=== PATIENT | male | born 2000 | race Asian ===

== ENCOUNTER 2023-12-24 16:47 | Inpatient (IN) | payer OTHER ==
[~2023-12-24] VITALS: Ht 175.3 cm; Wt 80.7 kg
[2023-12-24 16:56] VITALS: BP_SYST 130; PULSE 107; RESP 16; TEMP 96.9; O2SAT 99
[2023-12-24 18:56] LABS: HEMATOCRIT 42.4 % (36-54); HEMOGLOBIN 13.3 g/dL (14.0-18.0); MEAN CORPUSCULAR HEMOGLOBIN 21 pg (27-31); MEAN CORPUSCULAR HGB CONC 31 % (32-36); MEAN CORPUSCULAR VOLUME 67 fL (79.0-98.0); PLATELET COUNT (AUTO) 402 K/uL (130-430); RED BLOOD CELL COUNT(AUTO) 6.36 MIL/uL (4.2-6.2); RED CELL DISTRIBUTION WIDTH 14.1 % (9.0-15.0); WHITE BLOOD COUNT (AUTO) 27.8 K/uL (4.8-10.8)
[2023-12-24 19:01] LABS: CREATININE 1.1 mg/dL (0.55-1.30); POTASSIUM 4.3 mmol/L (3.5-5.1)
[2023-12-24 19:06] LABS: COVID19 ANTIGEN SOFIA FIA NEGATIVE (NEGATIVE)
[2023-12-24 19:13] LABS: BAND % (MANUAL) 6 % (0-6); BASOPHILS % (MANUAL) 0 % (0-2); EOSINOPHILS % (MANUAL) 0 % (0-7); HYPOCHROMASIA 1+; LYMPHOCYTES % (MANUAL) 2 % (20-46); MONOCYTES % (MANUAL) 4 % (0-11); PLATELET ESTIMATE ADEQUATE (ADEQUATE)
[2023-12-24 19:24] LABS: INFLUENZA TYPE A NEGATIVE (NEGATIVE); INFLUENZA TYPE B NEGATIVE (NEGATIVE)
[2023-12-24] MEDS ORDERED: iohexoL 350 mgI/mL, 100 ML INFUS..BTL IV ONE (20:20)
[2023-12-24] MEDS ORDERED: ONDANSETRON HCL 4 MG/2 ML VIAL IVP PRN (21:00)
[2023-12-24] MEDS ORDERED: MORPHINE 2 MG/ML INJ. SYRINGE IVP PRN (21:00)
[2023-12-25] MEDS: cefTRIAXone 1 GM IVPB PREMIX 50 ML IV SCH ×2 (01:35→21:12)
[2023-12-25] MEDS ORDERED: AZITHROMYCIN 500 MG/VIAL (ZITHROMAX) IV ONE (02:32)
[2023-12-25] MEDS: HYDROcodone/ACETAMIN 10-325 MG TAB PO PRN (02:34)
[2023-12-25] MEDS: AZITHROMYCIN 500 MG in NS 250 ML IV SCH ×2 (03:20→22:22)
[2023-12-25 04:47] LABS: ALBUMIN 2.6 g/dL (3.4-4.8); CALCIUM 8.3 mg/dL (8.4-11.0); CREATININE 1.15 mg/dL (0.55-1.30); POTASSIUM 3.5 mmol/L (3.5-5.1); TOTAL BILIRUBIN 0.4 mg/dL (0.0-1.0); TOTAL PROTEIN, SERUM 7.4 g/dL (6.4-8.3)
[2023-12-25 04:53] LABS: BASOPHILS % (AUTO) 0.2 % (0.0-2.0); EOSINOPHILS # (AUTO) 0.2 K/uL (0.0-0.4); EOSINOPHILS % (AUTO) 1.1 % (0.0-4.0); HEMATOCRIT 38.2 % (36-54); HEMOGLOBIN 12.3 g/dL (14.0-18.0); LYMPHOCYTES # (AUTO) 1.5 K/uL (1.0-5.5); LYMPHOCYTES % (AUTO) 7.3 % (20.5-51.5); MEAN CORPUSCULAR HEMOGLOBIN 21 pg (27-31); MEAN CORPUSCULAR HGB CONC 32 % (32-36); MEAN CORPUSCULAR VOLUME 66 fL (79.0-98.0); MONOCYTES # (AUTO) 1.9 K/uL (0.0-1.0); MONOCYTES % (AUTO) 9.5 % (1.7-9.3); NEUTROPHILS # (AUTO) 16.8 K/uL (1.8-7.7); NEUTROPHILS % (AUTO) 81.9 % (40.0-70.0); PLATELET COUNT (AUTO) 381 K/uL (130-430); RED BLOOD CELL COUNT(AUTO) 5.75 MIL/uL (4.2-6.2); RED CELL DISTRIBUTION WIDTH 14.4 % (9.0-15.0); WHITE BLOOD COUNT (AUTO) 20.5 K/uL (4.8-10.8)
[2023-12-25] MEDS: HYDROcodone/ACETAMIN 5-325 MG TAB (NORCO/ VICODIN) PO PRN (06:22)
[2023-12-25 09:52] VITALS: BP_SYST 125; PULSE 108; RESP 18; TEMP 99.2; O2SAT 97
[2023-12-25 17:33] LABS: TOTAL IRON BIND. CAPACITY 246 ug/dL (250-450)
[2023-12-25] MEDS: IBUPROFEN 400 MG TABLET PO ONE (17:42)
[2023-12-25 19:55] VITALS: RESP 20; TEMP 99.9; O2SAT 95
[2023-12-25] MEDS: IBUPROFEN 400 MG TABLET PO SCH (21:13)
[2023-12-26] VITALS (8 sets, daily range): BP systolic 108–125; PULSE 90–117; RESP 16–22; TEMP 96.2–100.4; O2SAT 94–97
[2023-12-26] MEDS: ACETAMINOPHEN 325 MG TABLET PO PRN (05:28)
[2023-12-26 06:07] LABS: HEMATOCRIT 40.5 % (36-54); MEAN CORPUSCULAR HEMOGLOBIN 22 pg (27-31); MEAN CORPUSCULAR HGB CONC 32 % (32-36); MEAN CORPUSCULAR VOLUME 67 fL (79.0-98.0); PLATELET COUNT (AUTO) 363 K/uL (130-430); RED BLOOD CELL COUNT(AUTO) 6.04 MIL/uL (4.2-6.2); RED CELL DISTRIBUTION WIDTH 14.5 % (9.0-15.0)
[2023-12-26 06:08] LABS: ALBUMIN 2.5 g/dL (3.4-4.8); CALCIUM 8.5 mg/dL (8.4-11.0); CREATININE 1.08 mg/dL (0.55-1.30); POTASSIUM 4.4 mmol/L (3.5-5.1); TOTAL PROTEIN, SERUM 7.5 g/dL (6.4-8.3)
[2023-12-26 08:05] LABS: WHITE BLOOD COUNT (AUTO) 31.9 K/uL (4.8-10.8)
[2023-12-26] MEDS: FAMOTIDINE 20 MG TABLET PO SCH (08:09)
[2023-12-26] MEDS: ENOXAPARIN SODIUM 30 MG/0.3 ML SYRINGE SUBCUT SCH (08:12)
[2023-12-26 09:29] LABS: BASOPHILS # (AUTO) 0.1 K/uL (0.0-0.2); BASOPHILS % (AUTO) 0.3 % (0.0-2.0); EOSINOPHILS # (AUTO) 0.1 K/uL (0.0-0.4); EOSINOPHILS % (AUTO) 0.2 % (0.0-4.0); HEMOGLOBIN 12.6 g/dL (14.0-18.0); LYMPHOCYTES # (AUTO) 1.2 K/uL (1.0-5.5); MEAN CORPUSCULAR HEMOGLOBIN 21 pg (27-31); MEAN CORPUSCULAR HGB CONC 31 % (32-36); MEAN CORPUSCULAR VOLUME 66 fL (79.0-98.0); MONOCYTES # (AUTO) 1.5 K/uL (0.0-1.0); MONOCYTES % (AUTO) 5.1 % (1.7-9.3); NEUTROPHILS # (AUTO) 27.1 K/uL (1.8-7.7); NEUTROPHILS % (AUTO) 90.4 % (40.0-70.0); PLATELET COUNT (AUTO) 364 K/uL (130-430); RED BLOOD CELL COUNT(AUTO) 6.02 MIL/uL (4.2-6.2); RED CELL DISTRIBUTION WIDTH 14.4 % (9.0-15.0)
[2023-12-26 10:10] LABS: ATYPICAL LYMPHOCYTES % 0 % (0-0); BAND % (MANUAL) 6 % (0-6); BASOPHILS % (MANUAL) 0 % (0-2); EOSINOPHILS % (MANUAL) 1 % (0-7); HYPOCHROMASIA 1+; LYMPHOCYTES % (MANUAL) 5 % (20-46); MONOCYTES % (MANUAL) 9 % (0-11); PLATELET ESTIMATE ADEQUATE (ADEQUATE)
[2023-12-26] MEDS ORDERED: CEFEPIME 2 GM in D5W 100 ML IV SCH (21:00)
[2023-12-26] MEDS: CEFEPIME 1 GM in D5W 100 ML IV SCH (21:09)
[2023-12-27] VITALS (9 sets, daily range): BP systolic 94–126; PULSE 95–122; RESP 16–19; TEMP 96.3–97.7; O2SAT 95–98
[2023-12-27] MEDS: PIPERACILLIN/TAZOBACTAM 3.375 GM/VIAL (ZOSYN) IV ONE (05:32)
[2023-12-27] MEDS: PIPERACILLIN/TAZO 3.375 GM in D5W 50 ML IV SCH (05:32)
[2023-12-27 05:56] LABS: BILIRUBIN,URINE NEGATIVE (NEGATIVE); BLOOD, URINE NEGATIVE (NEGATIVE); COLOR,URINE YELLOW (YELLOW); GLUCOSE,URINE NEGATIVE (NEGATIVE); KETONES,URINE NEGATIVE (NEGATIVE); LEUKOCYTE ESTERASE ,URINE NEGATIVE (NEGATIVE); NITRITE, URINE NEGATIVE (NEGATIVE); PROTEIN URINE 1+ (NEGATIVE); UROBILINOGEN,URINE 0.2 (0.2-1.0)
[2023-12-27 05:57] LABS: BASOPHILS % (AUTO) 0.1 % (0.0-2.0); EOSINOPHILS # (AUTO) 0.1 K/uL (0.0-0.4); EOSINOPHILS % (AUTO) 0.5 % (0.0-4.0); HEMATOCRIT 37.9 % (36-54); HEMOGLOBIN 12.1 g/dL (14.0-18.0); LYMPHOCYTES # (AUTO) 1.1 K/uL (1.0-5.5); LYMPHOCYTES % (AUTO) 3.9 % (20.5-51.5); MEAN CORPUSCULAR HEMOGLOBIN 21 pg (27-31); MEAN CORPUSCULAR HGB CONC 32 % (32-36); MEAN CORPUSCULAR VOLUME 66 fL (79.0-98.0); MONOCYTES # (AUTO) 2.1 K/uL (0.0-1.0); MONOCYTES % (AUTO) 7.8 % (1.7-9.3); NEUTROPHILS # (AUTO) 24.2 K/uL (1.8-7.7); PLATELET COUNT (AUTO) 384 K/uL (130-430); RED BLOOD CELL COUNT(AUTO) 5.72 MIL/uL (4.2-6.2); RED CELL DISTRIBUTION WIDTH 13.8 % (9.0-15.0); WHITE BLOOD COUNT (AUTO) 27.6 K/uL (4.8-10.8)
[2023-12-27 06:05] LABS: CLARITY/URINE HAZY (CLEAR)
[2023-12-27 06:06] LABS: BACTERIA,URINE None Seen /HPF (None Seen); RBC,URINE 0-3 /HPF (0-3); WBC,URINE 0-3 /HPF (0-3)
[2023-12-27 06:40] LABS: BARBITURATE, URINE NEGATIVE (NEG <=200); BENZODIAZEPINE, URINE NEGATIVE (NEG <=150); CANNABINOID, URINE POSITIVE (NEG <=50); COCAINE, URINE NEGATIVE (NEG <=150); METHAMPHETAMINES SCREEN,URINE NEGATIVE (NEG <=500); OPIATE, URINE POSITIVE (NEG <=100); PHENCYCLIDINE SCREEN,URINE NEGATIVE (NEG <=25); UR TRICYCLIC ANTIDEPRESSANTS NEGATIVE (NEG <=300); URINE AMPHETAMINE NEGATIVE (NEG <=500); URINE METHADONE NEGATIVE (NEG <=200); URINE OXYCODONE SCREEN NEGATIVE (NEG <=100)
[2023-12-27 06:51] LABS: ALBUMIN 2.3 g/dL (3.4-4.8); CALCIUM 8.3 mg/dL (8.4-11.0); CREATININE 1.07 mg/dL (0.55-1.30); POTASSIUM 4.1 mmol/L (3.5-5.1); TOTAL BILIRUBIN 0.5 mg/dL (0.0-1.0); TOTAL PROTEIN, SERUM 7.4 g/dL (6.4-8.3)
[2023-12-27 07:30] LABS: NEUTROPHILS % (AUTO) 87.7 % (40.0-70.0)
[2023-12-27] MEDS: IPRATROPIUM/ALBUTEROL SULFATE 3 ML AMPUL.NEB (DUONEB) INH PRN (08:49)
[2023-12-27 12:24] LABS: INR 1.1 (0.80-1.20); PROTHROMBIN TIME 11.5 SECS (9.5-12.5)
[2023-12-28] VITALS (8 sets, daily range): BP systolic 110–126; PULSE 72–121; RESP 17–18; TEMP 97–100; O2SAT 95–99
[2023-12-28 05:52] LABS: BASOPHILS # (AUTO) 0.2 K/uL (0.0-0.2); BASOPHILS % (AUTO) 0.6 % (0.0-2.0); EOSINOPHILS # (AUTO) 0.4 K/uL (0.0-0.4); EOSINOPHILS % (AUTO) 1.4 % (0.0-4.0); HEMATOCRIT 36.4 % (36-54); HEMOGLOBIN 11.4 g/dL (14.0-18.0); LYMPHOCYTES # (AUTO) 1.9 K/uL (1.0-5.5); LYMPHOCYTES % (AUTO) 7.6 % (20.5-51.5); MEAN CORPUSCULAR HEMOGLOBIN 21 pg (27-31); MEAN CORPUSCULAR HGB CONC 31 % (32-36); MEAN CORPUSCULAR VOLUME 66 fL (79.0-98.0); MONOCYTES # (AUTO) 2.6 K/uL (0.0-1.0); MONOCYTES % (AUTO) 10.3 % (1.7-9.3); NEUTROPHILS # (AUTO) 20.3 K/uL (1.8-7.7); PLATELET COUNT (AUTO) 386 K/uL (130-430); RED BLOOD CELL COUNT(AUTO) 5.49 MIL/uL (4.2-6.2); RED CELL DISTRIBUTION WIDTH 14.1 % (9.0-15.0); WHITE BLOOD COUNT (AUTO) 25.4 K/uL (4.8-10.8)
[2023-12-28 06:33] LABS: ALANINE AMINOTRANSFERASE 19 U/L (12-78); ALBUMIN 2.1 g/dL (3.4-4.8); ANION GAP 7 (5-15); ASPARTATE AMINOTRANSFERASE < 5 U/L (10-37); CALCIUM 8.6 mg/dL (8.4-11.0); CARBON DIOXIDE 29 mmol/L (23-29); CHLORIDE 101 mmol/L (98-107); CREATININE 1.03 mg/dL (0.55-1.30); GFR AFRICAN AMERICAN 116 mL/min (>90); GLUCOSE 94 mg/dL (74-106); LACTATE DEHYDROGENASE 112 U/L (85-227); SODIUM SERUM 137 mmol/L (136-145); TOTAL BILIRUBIN 0.8 mg/dL (0.0-1.0); TOTAL PROTEIN, SERUM 7.4 g/dL (6.4-8.3); UREA NITROGEN, BLOOD 15 mg/dL (8-21)
[2023-12-28 07:13] LABS: GFR NON AFRICAN-AMERICAN 96 mL/min (>90)
[2023-12-28 07:38] LABS: NEUTROPHILS % (AUTO) 80.1 % (40.0-70.0)
[2023-12-28] MEDS: fentaNYL CITRATE/PF 100 MCG/2 ML AMP ONE (10:26)
[2023-12-28] MEDS: MIDAZOLAM HCL 5 MG/5 ML VIAL ONE (10:26)
[2023-12-28] MEDS ORDERED: LIDOCAINE 1%, 20 ML MDV 20 ML ONE (11:32)
[2023-12-28 17:10] LABS: APPEARANCE,SPUN,BODY FLUID CLEAR (CLEAR); BF APPEARANCE UNSPUN HAZY (CLEAR); BODY FLUID COLOR YELLOW (LT YELLOW); BODY FLUID TOTAL VOLUME 100 mL; LYMPHOCYTES, BODY FLUID 5 %; NEUTROPHIL, BODY FLUID 95 %; PH, BODY FLUID >7; RBC, BODY FLUID 2115 /uL; SOURCE/TYPE ,BODY FLUID THORACENTESIS
[2023-12-28 17:15] LABS: WBC, BODY FLUID 533 /uL
[2023-12-28 21:20] LABS: BODY FLUID GLUCOSE 2 mg/dL; BODY FLUID TOTAL PROTEIN 5.8 g/dL
[2023-12-29] VITALS: BP_SYST 110; PULSE 106; RESP 18; TEMP 98; O2SAT 99
[2023-12-29 06:31] LABS: BASOPHILS # (AUTO) 0.1 K/uL (0.0-0.2); BASOPHILS % (AUTO) 0.4 % (0.0-2.0); EOSINOPHILS # (AUTO) 0.5 K/uL (0.0-0.4); EOSINOPHILS % (AUTO) 3.3 % (0.0-4.0); HEMATOCRIT 35.4 % (36-54); HEMOGLOBIN 11.3 g/dL (14.0-18.0); LYMPHOCYTES # (AUTO) 2.4 K/uL (1.0-5.5); LYMPHOCYTES % (AUTO) 14.9 % (20.5-51.5); MEAN CORPUSCULAR HEMOGLOBIN 21 pg (27-31); MEAN CORPUSCULAR HGB CONC 32 % (32-36); MEAN CORPUSCULAR VOLUME 66 fL (79.0-98.0); MONOCYTES # (AUTO) 1.6 K/uL (0.0-1.0); MONOCYTES % (AUTO) 9.8 % (1.7-9.3); NEUTROPHILS # (AUTO) 11.5 K/uL (1.8-7.7); NEUTROPHILS % (AUTO) 71.6 % (40.0-70.0); PLATELET COUNT (AUTO) 427 K/uL (130-430); RED BLOOD CELL COUNT(AUTO) 5.38 MIL/uL (4.2-6.2); RED CELL DISTRIBUTION WIDTH 14.2 % (9.0-15.0); WHITE BLOOD COUNT (AUTO) 16.1 K/uL (4.8-10.8)
[2023-12-29 06:57] LABS: CALCIUM 8.4 mg/dL (8.4-11.0); CREATININE 0.86 mg/dL (0.55-1.30); POTASSIUM 4.4 mmol/L (3.5-5.1); TOTAL BILIRUBIN 0.4 mg/dL (0.0-1.0); TOTAL PROTEIN, SERUM 7.1 g/dL (6.4-8.3)
[2023-12-29 08:00] VITALS: BP_SYST 113; PULSE 88; RESP 18; TEMP 96.4; O2SAT 97
[2023-12-29] MEDS: ENOXAPARIN SODIUM 30 MG/0.3 ML SYRINGE SUBCUT SCH (09:18)
[2023-12-29 12:36] VITALS: BP_SYST 102; PULSE 86; RESP 16; TEMP 97.3; O2SAT 97
[2023-12-29 16:10] VITALS: BP_SYST 107; PULSE 80; RESP 18; TEMP 98.2; O2SAT 96
[2023-12-29 17:55] VITALS: BP_SYST 107; PULSE 80; O2SAT 96
[2023-12-29 20:00] VITALS: BP_SYST 113; PULSE 87; RESP 17; TEMP 98.8; O2SAT 97
[2023-12-30] VITALS: BP_SYST 115; PULSE 85; RESP 18; TEMP 98.5; O2SAT 98
[2023-12-30 06:43] LABS: BASOPHILS # (AUTO) 0.1 K/uL (0.0-0.2); BASOPHILS % (AUTO) 0.6 % (0.0-2.0); EOSINOPHILS # (AUTO) 0.8 K/uL (0.0-0.4); HEMATOCRIT 36.8 % (36-54); HEMOGLOBIN 11.7 g/dL (14.0-18.0); LYMPHOCYTES % (AUTO) 12.3 % (20.5-51.5); MEAN CORPUSCULAR HEMOGLOBIN 21 pg (27-31); MEAN CORPUSCULAR HGB CONC 32 % (32-36); MEAN CORPUSCULAR VOLUME 66 fL (79.0-98.0); MONOCYTES # (AUTO) 1.3 K/uL (0.0-1.0); MONOCYTES % (AUTO) 8.1 % (1.7-9.3); PLATELET COUNT (AUTO) 484 K/uL (130-430); RED CELL DISTRIBUTION WIDTH 14.4 % (9.0-15.0); WHITE BLOOD COUNT (AUTO) 16.2 K/uL (4.8-10.8)
[2023-12-30 07:15] LABS: ALBUMIN 2.1 g/dL (3.4-4.8); CALCIUM 8.6 mg/dL (8.4-11.0); CREATININE 0.87 mg/dL (0.55-1.30); POTASSIUM 3.9 mmol/L (3.5-5.1); TOTAL BILIRUBIN 0.5 mg/dL (0.0-1.0); TOTAL PROTEIN, SERUM 7.5 g/dL (6.4-8.3)
[2023-12-30 08:15] VITALS: O2SAT 96
[2023-12-30 08:23] VITALS: BP_SYST 118; PULSE 87; RESP 14; TEMP 98.5; O2SAT 96
[2023-12-30 12:00] VITALS: BP_SYST 122; PULSE 85; RESP 16; TEMP 98.2; O2SAT 98
[2023-12-30 16:00] VITALS: BP_SYST 125; PULSE 82; RESP 14; TEMP 98.5; O2SAT 97
[2023-12-30 20:00] VITALS: BP_SYST 104; PULSE 89; RESP 17; TEMP 98.8; O2SAT 98
[2023-12-31] VITALS (8 sets, daily range): BP systolic 110–129; PULSE 71–99; RESP 16–18; TEMP 97.2–98.5; O2SAT 96–99
[2023-12-31 06:07] LABS: ALBUMIN 2.2 g/dL (3.4-4.8); CALCIUM 8.7 mg/dL (8.4-11.0); POTASSIUM 4.2 mmol/L (3.5-5.1); TOTAL BILIRUBIN 0.4 mg/dL (0.0-1.0); TOTAL PROTEIN, SERUM 7.7 g/dL (6.4-8.3)
[2023-12-31 06:19] LABS: BASOPHILS # (AUTO) 0.1 K/uL (0.0-0.2); BASOPHILS % (AUTO) 0.3 % (0.0-2.0); EOSINOPHILS # (AUTO) 0.9 K/uL (0.0-0.4); EOSINOPHILS % (AUTO) 5.1 % (0.0-4.0); HEMATOCRIT 37.5 % (36-54); HEMOGLOBIN 11.9 g/dL (14.0-18.0); LYMPHOCYTES # (AUTO) 2.5 K/uL (1.0-5.5); LYMPHOCYTES % (AUTO) 13.4 % (20.5-51.5); MEAN CORPUSCULAR HEMOGLOBIN 21 pg (27-31); MEAN CORPUSCULAR HGB CONC 32 % (32-36); MEAN CORPUSCULAR VOLUME 67 fL (79.0-98.0); MONOCYTES # (AUTO) 1.5 K/uL (0.0-1.0); NEUTROPHILS # (AUTO) 13.5 K/uL (1.8-7.7); NEUTROPHILS % (AUTO) 73.2 % (40.0-70.0); RED BLOOD CELL COUNT(AUTO) 5.62 MIL/uL (4.2-6.2); RED CELL DISTRIBUTION WIDTH 14.2 % (9.0-15.0); WHITE BLOOD COUNT (AUTO) 18.4 K/uL (4.8-10.8)
[2023-12-31 10:02] LABS: HYPOCHROMASIA 1+
[2023-12-31 10:03] LABS: PLATELET COUNT (AUTO) 578 K/uL (130-430)
[2023-12-31] MEDS: ALTEPLASE 2 MG VIAL MC ONE (16:02)
[2024-01-01] VITALS (10 sets, daily range): BP systolic 100–128; PULSE 53–98; RESP 16–19; TEMP 96.3–99.7; O2SAT 95–100
[2024-01-01] MEDS: ALTEPLASE 2 MG VIAL MC ONE (11:35)
[2024-01-01 19:06] LABS: MYCOPLASMA PNEUMONIAE IgG 322 U/mL (0-99); MYCOPLASMA PNEUMONIAE IgM 1602 U/mL (0-769)
[2024-01-01 22:06] LABS: COCCIDIOIDES AB IGG 0.2 IV (<=0.9); COCCIDIOIDES AB IGM 0.4 IV (<=0.9)
[2024-01-02] VITALS (8 sets, daily range): BP systolic 115–127; PULSE 75–98; RESP 16–18; TEMP 97.1–98.4; O2SAT 96–99
[2024-01-02 03:37] LABS: QUANTIFERON TB GOLD Negative (Negative)
[2024-01-02 05:16] LABS: BASOPHILS # (AUTO) 0.1 K/uL (0.0-0.2); BASOPHILS % (AUTO) 0.5 % (0.0-2.0); EOSINOPHILS # (AUTO) 0.8 K/uL (0.0-0.4); EOSINOPHILS % (AUTO) 4.2 % (0.0-4.0); HEMATOCRIT 37.7 % (36-54); LYMPHOCYTES # (AUTO) 2.7 K/uL (1.0-5.5); LYMPHOCYTES % (AUTO) 13.3 % (20.5-51.5); MEAN CORPUSCULAR HEMOGLOBIN 21 pg (27-31); MEAN CORPUSCULAR HGB CONC 32 % (32-36); MEAN CORPUSCULAR VOLUME 66 fL (79.0-98.0); MONOCYTES # (AUTO) 1.7 K/uL (0.0-1.0); MONOCYTES % (AUTO) 8.4 % (1.7-9.3); NEUTROPHILS # (AUTO) 14.7 K/uL (1.8-7.7); NEUTROPHILS % (AUTO) 73.6 % (40.0-70.0); PLATELET COUNT (AUTO) 717 K/uL (130-430); RED BLOOD CELL COUNT(AUTO) 5.74 MIL/uL (4.2-6.2); RED CELL DISTRIBUTION WIDTH 14.5 % (9.0-15.0); WHITE BLOOD COUNT (AUTO) 19.9 K/uL (4.8-10.8)
[2024-01-02] MEDS: levoFLOXacin 500 MG TABLET PO SCH (09:59)
[2024-01-02] MEDS: D5/0.45 NS 1,000 ML IV SCH (12:03)
[2024-01-02] MEDS: ALTEPLASE 2 MG VIAL MC ONE (12:03)
[2024-01-03] VITALS (8 sets, daily range): BP systolic 111–131; PULSE 71–95; RESP 16–20; TEMP 96.7–98.9; O2SAT 97–99
[2024-01-04] MEDS ORDERED: iohexoL 350 mgI/mL, 100 ML INFUS..BTL IV ONE ×2 (00:03→08:23)
[2024-01-04 08:10] VITALS: BP_SYST 124; PULSE 78; RESP 18; TEMP 98
[2024-01-04 10:28] VITALS: BP_SYST 124; PULSE 78; O2SAT 98
[2024-01-04 11:30] VITALS: BP_SYST 125; PULSE 90; RESP 19; TEMP 97.5
[2024-01-04] MEDS: PIPERACILLIN/TAZO 3.375 GM in D5W 50 ML IV SCH (15:18)
[2024-01-04 16:00] VITALS: BP_SYST 123; PULSE 88; RESP 19; TEMP 97.9
[2024-01-04 19:35] VITALS: BP_SYST 131; PULSE 94; RESP 20; TEMP 97.6; O2SAT 97
[2024-01-05 00:41] VITALS: BP_SYST 107; PULSE 71; RESP 18; TEMP 96.9; O2SAT 98
[2024-01-05 08:00] VITALS: BP_SYST 125; PULSE 97; RESP 14; TEMP 98.3; O2SAT 97
[2024-01-05] MEDS ORDERED: AMOX-423 PO (10:22)
[2024-01-05] MEDS ORDERED: LEVO-62 PO (10:22)
[2024-01-05 11:29] VITALS: BP_SYST 125; PULSE 97; RESP 14; TEMP 98.3; O2SAT 97
== END 2024-01-05 13:00 | disposition home or self-care (01) | DRG 871 ==
LOC: SED 16:47 → STU 20:53
PROVIDERS: ADMIT Family Medicine; ATTEND Family Medicine
PROC: 0W9B30Z Drainage of Left Pleural Cavity with Drainage Device, Percutaneous Approach (ICD-10-PCS; 2023-12-28)
PROC: 3E03317 Introduction of Other Thrombolytic into Peripheral Vein, Percutaneous Approach (ICD-10-PCS; principal; 2024-01-01)
DX: A41.9 Sepsis, unspecified organism (principal); J18.9 Pneumonia, unspecified organism; J91.8 Pleural effusion in other conditions classified elsewhere; Z20.822 Contact with and (suspected) exposure to COVID-19; F12.10 Cannabis abuse, uncomplicated
CPT/HCPCS: 36415; 71045; 71250-TC; 71275; 75989; 76604; 80048; 80053; 80307; 81000; 81001; 81015; 82042; 82947; 83540; 83550; 83605; 83615; 83880; 83986; 84157; 84484; 85007; 85025; 85027; 85379; 85610; 85730; 86480; 86635; 86713; 86738; 87040; 87070; 87081; 87101; 87116; 88108; 88305; 89051; 89060; 93005; 94640; 94760; 99285; G0378; J0456; J0692; J0696; J1650; J1956; J2001; J2250; J2543; J2997; J3010; J7050; J7060; Q9967